=== PATIENT | female | born 1980 | race Caucasian/White ===

== ENCOUNTER 2016-05-04 17:31 | Emergency (ER) | payer OTHER ==
[~2016-05-04] VITALS: Ht 165.1 cm; Wt 80.5 kg
[~2016-05-04 17:31] MED LIST: ABILIFY2 MG PO; BACTRIM,SEPT1 TABLET PO; BENTYL20 MG PO; CEFDINIR300 MG PO; CLEOCIN300 MG PO; CLINDAMYCIN HC300 MG PO; FLEXERIL10 MG PO; FLEXERIL5 MG PO; HYCODAN SYRUP480 ML PO; INDOCIN50 MG PO; K-DUR10 MEQ PO; KEFLEX500 MG PO; KLONOPIN0.5 M1 PO; KLONOPIN1 MG PO; LAMISIL AT12 GM TP; LEXAPRO10 MG PO; LORTAB 5-325 M1 EACH PO; MEDROL DOSEPAK4 MG PO; MOTRIN400 MG PO; MOTRIN600 MG PO; MOTRIN800 MG PO; MUCINEX D ER T1 EACH PO; NAPROSYN500 MG PO; NASONEX17 GM BOTH NARES; NOHOMEMEDS; PEN-VEE K,VEET500 MG PO; PREDNISONE10 M1 PO; PREDNISONE20 MG PO; TESSALON PERLE100 MG PO; TRAMADOL HCL50 MG PO; TRAZODONE HCL50 MG PO; TYLENOL REGULA325 MG PO; TYLENOL WITH C1 EACH PO; ULTRAM50 MG PO; XANAX XR3 MG PO; ZITHROMAX Z-PA250 MG PO; ZOFRAN ODT4 MG PO; ZOFRAN4 MG PO
[2016-05-04] MEDS ORDERED: AMOXICILLIN875 MG PO (19:00)
[2016-05-04] MEDS ORDERED: NORCO 5/3251 TABLET PO (19:00)
[2016-05-04] MEDS ORDERED: MOTRIN600 MG PO (19:00)
[2016-05-04 19:07] VITALS: BP 131/82
== END 2016-05-04 19:08 | disposition home or self-care (01) ==
LOC: EME 17:31
DX: K04.7 Periapical abscess without sinus (principal); F17.200 Nicotine dependence, unspecified, uncomplicated
CPT/HCPCS: 99281; 99283

== ENCOUNTER 2016-06-02 16:40 | Emergency (ER) | payer OTHER ==
[~2016-06-02] VITALS: Ht 165.1 cm; Wt 77.0 kg
[~2016-06-02 16:40] MED LIST changes: +AMOXICILLIN875 MG PO; +NORCO 5/3251 TABLET PO
[2016-06-02 18:10] LABS: CHLORIDE 107 mEq/L (99-109); POTASSIUM 3.2 mEq/L (3.7-5.4); SODIUM 141 mEq/L (136-147)
[2016-06-02 18:11] LABS: D-DIMER ELISA 0.46 mg/L FEU (< 0.57); HEMATOCRIT 31.1 % (36.0-46.0); MCH 20.5 PG (29.0-34.0); MCHC 28.9 G/DL (30.0-36.0); MEAN PLAT.VOLUME 9.9 uM^3 (9.5-12.4); PLATELET COUNT 368 K/uL (156-360); PROTHROMBIN TIME 10.4 (9.2-11.2); RBC DIS.WIDTH-CV 18.3 % (11.8-14.6); RBC DIS.WIDTH-SD 46.6 % (39-53); RED BLOOD COUNT 4.38 M/uL (3.80-5.20)
[2016-06-02 18:12] LABS: GLUCOSE 92 mg/dL (70-99)
[2016-06-02 18:13] LABS: ANION GAP 9 MEQ/L (2-14)
[2016-06-02 18:16] LABS: GFR ESTIMATE (CALCULATED) > 59 mL/min/; UREA NITROGEN (BUN) 7 mg/dL (9-23)
[2016-06-02 18:21] LABS: TROP-I INTERPRETATION NEGATIVE; TROPONIN-I < 0.01 ng/mL (0.0-0.30)
[2016-06-02 18:23] LABS: QUANTITATIVE HCG < 4.0 MIU/ML
[2016-06-02 20:06] LABS: TROP-I INTERPRETATION NEGATIVE; TROPONIN-I < 0.01 ng/mL (0.0-0.30)
[2016-06-02 21:45] VITALS: BP 119/86
== END 2016-06-02 21:41 | disposition home or self-care (01) ==
LOC: EME → EDBD 16:40 → EME 21:41
PROVIDERS: Emergency Medicine
DX: R07.89 Other chest pain (principal); E87.6 Hypokalemia; D72.829 Elevated white blood cell count, unspecified; D64.9 Anemia, unspecified; F17.200 Nicotine dependence, unspecified, uncomplicated
CPT/HCPCS: 71020; 80048; 84484; 84702; 85027; 85379; 85610; 85730; 93005; 99281; 99284

== ENCOUNTER 2016-09-07 11:33 | Emergency (ER) | payer OTHER ==
[~2016-09-07] VITALS: Ht 165.1 cm; Wt 82.1 kg
[2016-09-07 13:19] LABS: HEMATOCRIT 34.5 % (36.0-46.0); MCH 20.7 PG (29.0-34.0); MCHC 29.3 G/DL (30.0-36.0); MCV 70.7 FL (83-99); PLATELET COUNT 452 K/uL (156-360); RBC DIS.WIDTH-CV 19.4 % (11.8-14.6); RBC DIS.WIDTH-SD 48.7 % (39-53); RED BLOOD COUNT 4.88 M/uL (3.80-5.20); WHITE BLOOD COUNT 10.7 K/uL (4.1-10.2)
[2016-09-07 13:20] LABS: CHLORIDE 99 mEq/L (99-109); POTASSIUM 2.8 mEq/L (3.7-5.4); SODIUM 138 mEq/L (136-147)
[2016-09-07 13:22] LABS: GLUCOSE 108 mg/dL (70-99)
[2016-09-07 13:24] LABS: ANION GAP 8 MEQ/L (2-14)
[2016-09-07 13:25] LABS: SERUM ETHYL ALCOHOL < 10 mg/dL
[2016-09-07 13:26] LABS: GFR ESTIMATE (CALCULATED) > 59 mL/min/
[2016-09-07 13:28] LABS: UREA NITROGEN (BUN) 2 mg/dL (9-23)
[2016-09-07 13:29] LABS: SALICYLATE < 5.0 MG/DL (15-30)
[2016-09-07 15:00] LABS: ADD MIUA? YES; BILIRUBIN NEGATIVE; BLOOD SMALL; COLOR YELLOW ((YELLOW)); GLUCOSE (STRIP) NEGATIVE; KETONES NEGATIVE; LEUKOCYTES TRACE; NITRITE NEGATIVE; PROTEIN (STRIP) NEGATIVE; SPECIFIC GRAVITY 1.002 (1.000-1.030); UROBILINOGEN 0.2 MG/DL (0.2-1.0)
[2016-09-07 15:05] LABS: BACTERIA RARE /HPF; EPITHELIAL CELLS 4+ /HPF; MUCUS TRACE /LPF; RED BLOOD CELLS 0-5 /HPF (0-5); WHITE BLOOD CELLS 0-5 /HPF (0-5)
[2016-09-07 15:11] LABS: AMPHETAMINE NEGATIVE (500 ng/mL); BARBITURATES NEGATIVE (200 ng/mL); BENZODIAZEPINES NEGATIVE (150 ng/mL); COCAINE NEGATIVE (150 ng/mL); INTERNAL CONTROLS VALID? YES; METHADONE NEGATIVE (200 ng/mL); METHAMPHETAMINE NEGATIVE (500 ng/mL); OPIATES (MORPHINE) NEGATIVE (100 ng/mL); OXYCODONE NEGATIVE (100 ng/mL); PHENCYCLIDINE NEGATIVE (25 ng/mL); PROPOXYPHENE NEGATIVE (300 ng/mL); THC CANNABINOIDS NEGATIVE (50 ng/mL); TRICYCLIC ANTIDEPRESSANTS NEGATIVE (300 ng/mL)
[2016-09-07] MEDS ORDERED: ZOLOFT50 MG PO (15:28)
[2016-09-07 16:33] LABS: CHLORIDE 101 mEq/L (99-109); SODIUM 139 mEq/L (136-147)
[2016-09-07 16:35] LABS: GLUCOSE 113 mg/dL (70-99)
[2016-09-07 16:36] LABS: ANION GAP 8 MEQ/L (2-14)
[2016-09-07 16:37] LABS: POTASSIUM 3.6 mEq/L (3.7-5.4)
[2016-09-07 16:39] LABS: GFR ESTIMATE (CALCULATED) > 59 mL/min/
[2016-09-07 16:40] LABS: UREA NITROGEN (BUN) 2 mg/dL (9-23)
[2016-09-07 20:44] LABS: QUANTITATIVE HCG < 4.0 MIU/ML
[2016-09-08 01:05] VITALS: BP 113/65
== END 2016-09-08 01:12 ==
LOC: EME 11:33
PROVIDERS: Physician Assistant Medical
DX: F33.3 Major depressive disorder, recurrent, severe with psychotic symptoms (principal); F41.9 Anxiety disorder, unspecified; T43.226A Underdosing of selective serotonin reuptake inhibitors, initial encounter; Z91.128 Patient's intentional underdosing of medication regimen for other reason; F17.200 Nicotine dependence, unspecified, uncomplicated
CPT/HCPCS: 80048; 80048 91; 81003; 84702; 85027; 90839; 93005; 99281; 99285; G0480; J3480

== ENCOUNTER 2017-04-12 22:07 | Emergency (ER) | payer OTHER ==
[~2017-04-12] VITALS: Ht 165.1 cm; Wt 92.5 kg
[~2017-04-12 22:07] MED LIST changes: +ZOLOFT50 MG PO
[2017-04-13] MEDS ORDERED: ULTRAM50 MG PO (02:24)
[2017-04-13] MEDS ORDERED: INDOCIN50 MG PO (02:24)
[2017-04-13 02:36] VITALS: BP 135/70
== END 2017-04-13 02:37 | disposition home or self-care (01) ==
LOC: EME 22:07
DX: S43.401A Unspecified sprain of right shoulder joint, initial encounter (principal)
CPT/HCPCS: 99281; 99284